=== PATIENT | female | born 1975 | race American Indian/Alaskan Native ===

== ENCOUNTER 2021-08-02 01:41 | Emergency (ER) | payer OTHER ==
[2021-08-02] MEDS ORDERED: ALBUTEROL 8.5 GM MDI INHALATION IH ONE (03:04)
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
[2021-08-02 03:47] VITALS: BP 137/89
== END 2021-08-02 03:47 ==
LOC: ED 01:41
DX: R06.02 Shortness of breath (principal); J45.909 Unspecified asthma, uncomplicated
CPT/HCPCS: 94640; 99283